=== PATIENT | male | born 1935 | race Caucasian/White ===

== ENCOUNTER → 2016-07-20 | Outpatient (CLI) | payer OTHER, BC ==
[~2016-07-20] MED LIST: ADVAIR 250/501 DISK IH; ASPIR 8181 M1 PO; ASPIRIN81 M1 PO; ATORVASTATIN CA40 MG PO; CEFTIN250 MG PO; CEFTIN500 MG PO; COUMADIN,JANTOVE1 MG PO; COUMADIN1 MG PO; COUMADIN2 MG PO; Calan SR,Covera HS,I PO; Coumadin,Jantoven PO; DELTASONE20 MG PO; DUONEB 2.5-0.5 M3 ML AEROSOL; DuoNeb IH; Flexeril PO; IPRATROPIU0.2 MG/1 M IH; LIPITOR20 MG PO; LIPITOR40 MG PO; OMEPRAZOLE20 MG PO; PACERONE200 M1 PO; PREDNISONE5 MG PO; PRESERVISION T1 EACH PO; PRILOSEC20 MG PO; Prilosec PO; RANITIDINE HCL150 MG PO; Robitussin, Organidi PO; SOTALOL80 MG PO; SPIRIVA1 INHALATI IH; Ultram PO; VENTOLIN HFA18 GM IH; VERAPAMIL HCL240 MG PO; WARFARIN SODIUM2 MG PO; ZITHROMAX500 MG PO
[2016-07-20 09:32] LABS: INTER. NORMALIZED RATIO 1.6; PROTHROMBIN TIME 16.2 (9.2-11.2); PTT 33.3 (25-32)
[2016-07-20 09:57] LABS: HEMATOCRIT 25.4 % (38.0-50.0); MCH 18.6 PG (29.0-34.0); MCV 66.5 FL (86-99); PLATELET COUNT 206 K/uL (156-360); RBC DIS.WIDTH-SD 50.2 % (39-53); RED BLOOD COUNT 3.82 M/uL (4.00-5.50); WHITE BLOOD COUNT 10.3 K/uL (4.1-10.2)
== END | disposition home or self-care (01) ==
LOC: OPR 08:42 → EDSTATUS 09:00 → OPR 09:00
PROVIDERS: Internal Medicine Pulmonary Disease
DX: J84.10 Pulmonary fibrosis, unspecified (principal); Z85.118 Personal history of other malignant neoplasm of bronchus and lung; J44.9 Chronic obstructive pulmonary disease, unspecified; Z87.891 Personal history of nicotine dependence; Z29.8 Encounter for other specified prophylactic measures; I51.7 Cardiomegaly
CPT/HCPCS: 71010; 77012; 85027; 85610; 85730; 88305; J3010

== ENCOUNTER 2016-11-23 17:28 | Inpatient (IN) | payer OTHER, BC ==
[~2016-11-23] VITALS: Ht 170.2 cm; Wt 61.5 kg
[~2016-11-23 17:28] MED LIST changes: -WARFARIN SODIUM2 MG PO
[2016-11-23 18:13] LABS: CARBON DIOXIDE (BICARBONATE) 29.6 MEQ/L (20-31)
[2016-11-23 18:16] LABS: CHLORIDE 108 mEq/L (99-109); POTASSIUM 4.4 mEq/L (3.7-5.4); SODIUM 140 mEq/L (136-147)
[2016-11-23 18:18] LABS: GLUCOSE 147 mg/dL (70-99); HEMATOCRIT 20.5 % (38.0-50.0); MCHC 29.3 G/DL (30.0-36.0); MCV 71.7 FL (86-99); PLATELET COUNT 128 K/uL (156-360); RBC DIS.WIDTH-CV 24.5 % (11.8-14.6); RED BLOOD COUNT 2.86 M/uL (4.00-5.50); WHITE BLOOD COUNT 13.5 K/uL (4.1-10.2)
[2016-11-23 18:19] LABS: ANION GAP 5 MEQ/L (2-14)
[2016-11-23 18:22] LABS: GFR ESTIMATE (CALCULATED) 52 mL/min/
[2016-11-23 18:23] LABS: UREA NITROGEN (BUN) 20 mg/dL (9-23)
[2016-11-23 18:26] LABS: TROP-I INTERPRETATION NEGATIVE; TROPONIN-I 0.03 ng/mL (0.0-0.30)
[2016-11-23 19:36] LABS: INTER. NORMALIZED RATIO 3.6; PROTHROMBIN TIME 41.3 SEC (10.2-12.9)
[2016-11-23 19:38] LABS: PTT 58.9 SEC (25-37)
[2016-11-23 19:54] LABS: ALKALINE PHOSPHATASE 119 IU/L (3-129)
[2016-11-23 19:57] LABS: DIRECT BILIRUBIN 1.1 mg/dL (0.0-0.3)
[2016-11-23 19:58] LABS: LIPASE 89 U/L (1.0-51.0)
[2016-11-23 21:35] VITALS: BP 108/47
[2016-11-23 22:00] VITALS: BP 90/54
[2016-11-23 23:00] VITALS: BP 91/48
[2016-11-24] VITALS (12 sets, daily range): BP systolic 100–131; BP diastolic 40–90
[2016-11-24 06:40] LABS: HEMATOCRIT 25.8 % (38.0-50.0); MCH 22.8 PG (29.0-34.0); MCHC 29.8 G/DL (30.0-36.0); PLATELET COUNT 97 K/uL (156-360); RBC DIS.WIDTH-CV 24.1 % (11.8-14.6); RBC DIS.WIDTH-SD 66.2 % (39-53); RED BLOOD COUNT 3.38 M/uL (4.00-5.50); WHITE BLOOD COUNT 11.2 K/uL (4.1-10.2)
[2016-11-24 06:42] LABS: MCV 76.3 FL (86-99)
[2016-11-24 06:57] LABS: TROP-I INTERPRETATION NEGATIVE; TROPONIN-I 0.03 ng/mL (0.0-0.30)
[2016-11-24 07:06] LABS: ALKALINE PHOSPHATASE 91 IU/L (3-129); ANION GAP 4 MEQ/L (2-14); CHLORIDE 110 MEQ/L (99-109); GFR ESTIMATE (CALCULATED) > 59 mL/min/; POTASSIUM 4.7 MEQ/L (3.7-5.4); SAMPLE HEMOLYSIS CHECK 0; SAMPLE ICTERIC CHECK 1; SAMPLE LIPEMIA CHECK 0; SODIUM 145 MEQ/L (136-147); TOTAL BILIRUBIN 3.6 MG/DL (0.0-1.0); UREA NITROGEN (BUN) 20 mg/dL (9-23)
[2016-11-24 07:08] LABS: GLUCOSE 89 mg/dL (70-99)
[2016-11-24 11:47] LABS: INTER. NORMALIZED RATIO 3.3; PROTHROMBIN TIME 38.5 SEC (10.2-12.9)
[2016-11-24 12:43] LABS: ADD MIUA? YES; BILIRUBIN NEGATIVE; BLOOD NEGATIVE; COLOR AMBER ((YELLOW)); GLUCOSE (STRIP) NEGATIVE; KETONES NEGATIVE; LEUKOCYTES NEGATIVE; NITRITE NEGATIVE; PROTEIN (STRIP) 30; SPECIFIC GRAVITY 1.019 (1.000-1.030)
[2016-11-24 12:52] LABS: BACTERIA RARE /HPF; EPITHELIAL CELLS RARE /HPF; HYALINE CASTS 15-20 /LPF; MUCUS TRACE /LPF; RED BLOOD CELLS 0-5 /HPF (0-5); UCUL ADDED? NO; WHITE BLOOD CELLS 0-5 /HPF (0-5)
[2016-11-24 12:53] LABS: GRANULAR CASTS 0-5 /LPF
[2016-11-24 18:14] LABS: HEMATOCRIT 28.1 % (38.0-50.0); MCV 76.2 FL (86-99)
[2016-11-24 18:28] LABS: IRON 125 MCG/DL (35-150)
[2016-11-24 18:46] LABS: FERRITIN 26 NG/ML (22-322)
[2016-11-25] VITALS (7 sets, daily range): BP systolic 88–134; BP diastolic 44–67
[2016-11-25 06:38] LABS: HEMATOCRIT 26.2 % (38.0-50.0); MCH 22.9 PG (29.0-34.0); MCHC 30.5 G/DL (30.0-36.0); MCV 74.9 FL (86-99); NRBC (%) 0.2 /100 WBC (0-0); PLATELET COUNT 95 K/uL (156-360); RBC DIS.WIDTH-CV 25.3 % (11.8-14.6); RBC DIS.WIDTH-SD 67.6 % (39-53)
[2016-11-25 06:58] LABS: ALKALINE PHOSPHATASE 86 IU/L (3-129); DIRECT BILIRUBIN 1.7 mg/dL (0.0-0.3)
[2016-11-25 06:59] LABS: TOTAL BILIRUBIN 4.7 MG/DL (0.0-1.0)
[2016-11-25 08:15] LABS: ANION GAP 8 MEQ/L (2-14); CHLORIDE 107 MEQ/L (99-109); GFR ESTIMATE (CALCULATED) 56 mL/min/; GLUCOSE 88 mg/dL (70-99); POTASSIUM 3.9 MEQ/L (3.7-5.4); SODIUM 144 MEQ/L (136-147); UREA NITROGEN (BUN) 19 mg/dL (9-23)
[2016-11-25 11:05] LABS: HBSG INDEX 0.22; HPCA INDEX 0.22
[2016-11-25 11:06] LABS: ANTI-HEPATITIS A VIRUS (IGM) Nonreactive; HAV INDEX 0.14
[2016-11-25 11:07] LABS: ANTI-HEPATITIS B CORE (IGM) Nonreactive; HBC IgM INDEX 0.05
[2016-11-26 04:05] VITALS: BP 96/50
[2016-11-26 06:05] LABS: INTER. NORMALIZED RATIO 3.4; PROTHROMBIN TIME 39.4 SEC (10.2-12.9)
[2016-11-26 06:40] LABS: HEMATOCRIT 24.5 % (38.0-50.0); MCH 23.9 PG (29.0-34.0); MCHC 31.8 G/DL (30.0-36.0); MCV 74.9 FL (86-99); RBC DIS.WIDTH-CV 26.5 % (11.8-14.6); RBC DIS.WIDTH-SD 69.6 % (39-53); RED BLOOD COUNT 3.27 M/uL (4.00-5.50); WHITE BLOOD COUNT 12.6 K/uL (4.1-10.2)
[2016-11-26 06:44] LABS: ALKALINE PHOSPHATASE 83 IU/L (3-129); ANION GAP 6 MEQ/L (2-14); CHLORIDE 108 MEQ/L (99-109); DIRECT BILIRUBIN 1.7 mg/dL (0.0-0.3); GFR ESTIMATE (CALCULATED) 56 mL/min/; GLUCOSE 125 mg/dL (70-99); POTASSIUM 3.5 MEQ/L (3.7-5.4); SAMPLE HEMOLYSIS CHECK 0; SAMPLE ICTERIC CHECK 1; SAMPLE LIPEMIA CHECK 0; SODIUM 143 MEQ/L (136-147); TOTAL BILIRUBIN 4.5 MG/DL (0.0-1.0); UREA NITROGEN (BUN) 22 mg/dL (9-23)
[2016-11-26 07:23] VITALS: BP 108/53
[2016-11-26 07:47] LABS: PLAT.SUFFICIENCY DECREASED; PLATELET COUNT 95 K/uL (156-360)
[2016-11-26 11:01] VITALS: BP 112/59
[2016-11-26 15:12] VITALS: BP 112/72
[2016-11-26 20:00] VITALS: BP 110/50
[2016-11-26 20:32] VITALS: BP 110/50
[2016-11-27] VITALS (7 sets, daily range): BP systolic 94–132; BP diastolic 51–65
[2016-11-27 05:59] LABS: ALKALINE PHOSPHATASE 73 IU/L (3-129); ANION GAP 6 MEQ/L (2-14); CHLORIDE 111 MEQ/L (99-109); DIRECT BILIRUBIN 1.7 mg/dL (0.0-0.3); GFR ESTIMATE (CALCULATED) 56 mL/min/; GLUCOSE 114 mg/dL (70-99); POTASSIUM 3.4 MEQ/L (3.7-5.4); SAMPLE HEMOLYSIS CHECK 0; SAMPLE ICTERIC CHECK 1; SAMPLE LIPEMIA CHECK 0; SODIUM 146 MEQ/L (136-147); TOTAL BILIRUBIN 4.5 MG/DL (0.0-1.0); UREA NITROGEN (BUN) 18 mg/dL (9-23)
[2016-11-27 06:36] LABS: HEMATOCRIT 24.2 % (38.0-50.0); MCH 23.1 PG (29.0-34.0); MCHC 30.6 G/DL (30.0-36.0); MCV 75.6 FL (86-99); PLATELET COUNT 83 K/uL (156-360); RBC DIS.WIDTH-SD 71.1 % (39-53); WHITE BLOOD COUNT 10.5 K/uL (4.1-10.2)
[2016-11-27 12:24] LABS: BASE EXCESS -0.3 mEq/L (-3 to +3); BICARBONATE 28.5 mEq/L (22-26); CARBOXY HGB 2.3 % (0-5); METHEMOGLOBIN 1.6 % (0-1.5); PCO2 73 mm Hg (35-45); PO2 52 mm Hg (80-100)
[2016-11-27 12:25] LABS: COMMENTS - BLOOD GASES A+C+; DEVICE NRBM; FI02 100 %; O2 FLOW 15 L/MIN; SITE LR; TOTAL RESP RATE 18 resp/min
[2016-11-27 12:27] LABS: POINT-OF-CARE METER ID UU13113717
== END 2016-11-27 18:20 | DRG 291 ==
LOC: EME 17:28 → 5SOUTH 22:20 → EDOF 22:20 → ENRESERV 22:22 → 5SOUTH 11-24 00:21 → ENRESERV 11-27 12:23 → 4WEST 11-27 12:27
PROVIDERS: Emergency Medicine; Hospitalist; Nurse Practitioner Adult Health
PROC: 30233N1 Transfusion of Nonautologous Red Blood Cells into Peripheral Vein, Percutaneous Approach (ICD-10-PCS; principal; 2016-11-23)
DX: I50.9 Heart failure, unspecified (principal); D62 Acute posthemorrhagic anemia; K92.2 Gastrointestinal hemorrhage, unspecified; E87.2 Acidosis; J96.01 Acute respiratory failure with hypoxia; C34.12 Malignant neoplasm of upper lobe, left bronchus or lung; E87.6 Hypokalemia; R74.0 Nonspecific elevation of levels of transaminase and lactic acid dehydrogenase [LDH]; J44.9 Chronic obstructive pulmonary disease, unspecified; I08.1 Rheumatic disorders of both mitral and tricuspid valves; I48.0 Paroxysmal atrial fibrillation; I42.9 Cardiomyopathy, unspecified; K21.9 Gastro-esophageal reflux disease without esophagitis; E78.5 Hyperlipidemia, unspecified; N40.0 Benign prostatic hyperplasia without lower urinary tract symptoms; Z51.5 Encounter for palliative care; Z66 Do not resuscitate; I25.2 Old myocardial infarction; Z79.01 Long term (current) use of anticoagulants; Z79.82 Long term (current) use of aspirin; Z87.891 Personal history of nicotine dependence; Z90.2 Acquired absence of lung [part of]; Z95.810 Presence of automatic (implantable) cardiac defibrillator
CPT/HCPCS: 36600; 71010; 71020; 76705; 80048; 80053; 80076; 81003; 82140; 82607; 82728; 82746; 82803; 82948; 83540; 83605; 83690; 83880; 84466; 84484; 85014; 85018; 85027; 85610; 85730; 86705; 86709; 86803; 86900; 86901; 86920; 87040; 87340; 87641; 93005; 94640; 94640 76; 94760; 94799; 97530 GP; 99202; 99281; 99285; C9113; J1940; J2270; J2354; J7040; P9016